=== PATIENT | male | born 1945 | race Caucasian/White ===

== ENCOUNTER 2020-06-08 08:27 | Outpatient (CLI) | payer MEDICARE, BC ==
--- NOTE | 2020-06-08 14:32 | NM ---
Nuclear medicine [facility] SPECT brain: DATE: 06/08/2020 HISTORY: 75-year-old male with Parkinson's disease TECHNIQUE: Premedication administered PO 1 hour prior to injection:120 mg. Radiopharmaceutical administered IV 3 hours prior to scan:4.5 mCi I-123 Ioflupane. Axial SPECT of brain performed. FINDINGS: Uptake in caudate nuclei:Bilaterally symmetrical Uptake in the putamina:Bilateral symmetrical IMPRESSION: Negative.
== END 2020-06-08 08:28 | disposition home or self-care (01) ==
LOC: NM 08:27
PROVIDERS: ATTEND Psychiatry & Neurology Neurology
DX: G20 Parkinson's disease (principal)
CPT/HCPCS: 78803; A9584